=== PATIENT | female | born 1995 | race Caucasian/White ===

== ENCOUNTER 2019-02-06 12:56 | Emergency (ER) | payer BC ==
[2019-02-06 13:47] LABS: #Basophils 0.1 thou/uL (0.0-0.2); #Eosinphils 0.1 thou/uL (0.0-0.7); #Lymphocytes 2.3 thou/uL (1.20-3.40); #Monocytes 0.5 thou/uL (0.11-0.59); #Neutrophils 5.6 thou/uL (1.40-6.50); %Basophils 0.6 % (0.0-1.0); %Eosinophils 1.6 % (0.0-10.0); %Lymphocytes 26.2 % (21.0-51.0); %Monocytes 6.3 % (0.0-10.0); %Neutrophils 65.3 % (42.0-75.0); Hemoglobin 12.9 g/dL (12.0-16.0); Mean Corpuscular HGB CONC 33.5 g/dL (32.0-36.0); Mean Corpuscular Hemoglobin 31.1 pg (27.0-31.0); Mean Corpuscular Volume 92.8 fL (78.0-98.0); Mean Platelet Volume 9.6 fL (7.4-10.4); Platelet Count 199 thou/uL (130-400); RBC Distribution Width 12.6 % (11.5-14.5); Red Blood Cell (RBC) Count 4.16 mill/uL (4.20-5.40); White Blood Cell (WBC) Count 8.6 thou/uL (4.8-10.8)
[2019-02-06 14:44] LABS: BHCG - Serum Negative (NEGATIVE); Pregs Control Background? CLEAR/WHITE (CLR/WHITE); Pregs Control Bar Appear? YES (CONTROL BAR)
[2019-02-06 18:28] LABS: Bilirubin Negative (Negative); Blood, Urine 3+ (Negative); Clarity Clear (Clear); Glucose, Urine (Dipstick) Normal (Negative); Leukocyte Negative Leu/uL (Negative); Nitrite Negative (Negative); Protein, Urine (Dipstick) Negative (Neg-Trace); Squamous Epithelial 0-3 HPF (0-3); Urobilinogen Normal mg/dL (Less than 2); WBC/HPF 0-3 HPF (0-3)
[2019-02-06 18:40] LABS: Bacteria/HPF Rare-Few HPF (None Seen)
--- NOTE | 2019-02-06 18:49 | ULT ---
Exam: Testicular ultrasound Exam: Transabdominal and endovaginal pelvic ultrasound HISTORY:Vaginal bleeding COMPARISON: None TECHNIQUE: Transabdominal and endovaginal imaging of the pelvis is performed. Ovaries are interrogate d with grayscale, color flow, Doppler imaging and spectral wave form analysis FINDINGS: Uterus: No myometrial masses. Uterus measurin.6 x 3.7 x 4.7 cm. Endometrium: Homogeneous echotexture. Endometrium diameter: 0.6 cm. Small nabothian cysts in the cervix measuring 0.6 cm. Free fluid: Small amount of free fluid Right ovary: Normal echotexture Right ovary measurement: 2.8 x 2.1 x 2.5 cm Left ovary: Not appreciated Ovarian Doppler: There is vascular flow to the right ovary. IMPRESSION: Essentially unremarkable pelvic ultrasound
== END 2019-02-06 19:05 | disposition home or self-care (01) ==
LOC: ERS 12:56
DX: N92.0 Excessive and frequent menstruation with regular cycle (principal); J45.909 Unspecified asthma, uncomplicated; F41.9 Anxiety disorder, unspecified; F32.9 Major depressive disorder, single episode, unspecified; Z79.899 Other long term (current) drug therapy
CPT/HCPCS: 36415; 76856; 81003; 81015; 84702; 84703; 85025

== ENCOUNTER 2022-01-05 11:18 | Day surgery (SDC) | payer OTHER ==
[2022-01-03 12:27] VITALS: BMI 50.5
[2022-01-05] MEDS ORDERED: PROPOFOL 200 MG/20 ML VIAL ONE (13:11)
== END 2022-01-05 14:10 | disposition home or self-care (01) ==
LOC: SDC 11:18
PROVIDERS: ATTEND Internal Medicine Gastroenterology
PROC: 0DJD8ZZ Inspection of Lower Intestinal Tract, Via Natural or Artificial Opening Endoscopic (ICD-10-PCS; principal; 2022-01-05)
DX: K92.1 Melena (principal); K64.8 Other hemorrhoids; K21.9 Gastro-esophageal reflux disease without esophagitis; E66.01 Morbid (severe) obesity due to excess calories; Z68.43 Body mass index [BMI] 50.0-59.9, adult; Z87.891 Personal history of nicotine dependence; Z79.899 Other long term (current) drug therapy; Z91.018 Allergy to other foods
CPT/HCPCS: J2704

== ENCOUNTER 2022-08-20 22:04 | Emergency (ER) | payer OTHER ==
[2022-08-20 23:58] LABS: ALT (SGPT) 21 U/L (8-55); AST (SGOT) 20 U/L (5-34); Alkaline Phosphatase 80 U/L (40-110); Anion Gap 13 mmol/L (10-20); BUN (Urea Nitrogen) 9 mg/dL (7.0-18.7); Bilirubin, Total 0.2 mg/dL (0.2-1.2); CK (CPK) 50 U/L (29-168); Calc. Creatinine Clearance 0 mL/min (70-130); Calcium 9.2 mg/dL (7.8-10.44); Carbon Dioxide 23 mmol/L (22-29); Chloride 100 mmol/L (98-107); Estimated GFR 111; Globulin 3.2 g/dL (2.4-3.5); Glucose 102 mg/dL (70-105); Potassium 3.9 mmol/L (3.5-5.1); Protein, Total 7.2 g/dL (6.0-8.3); Sodium 132 mmol/L (136-145)
[2022-08-21 00:20] LABS: #Basophils 0.1 thou/uL (0.0-0.2); #Eosinphils 0.1 thou/uL (0.0-0.7); #Neutrophils 12.2 thou/uL (1.40-6.50); %Basophils 0.4 % (0.0-1.0); %Eosinophils 0.6 % (0.0-10.0); %Lymphocytes 16.6 % (21.0-51.0); %Neutrophils 76.1 % (42.0-75.0); Hemoglobin 12.3 g/dL (12.0-16.0); Mean Corpuscular HGB CONC 32.7 g/dL (32.0-36.0); Mean Corpuscular Hemoglobin 29.2 pg (27.0-31.0); Mean Corpuscular Volume 89.3 fl (78.0-98.0); Mean Platelet Volume 12.1 fL (7.4-10.4); Platelet Count 196 10x3/uL (130-400); RBC Distribution Width 12.8 % (11.5-14.5); Red Blood Cell (RBC) Count 4.21 mill/uL (4.20-5.40)
[2022-08-21] MEDS ORDERED: Promethazine HCl 12.5 MG in Sodium Chloride 0.9% 50 ML IVPB SCH (02:15)
== END 2022-08-21 05:06 | disposition home or self-care (01) ==
LOC: ERS 22:04
DX: T67.5XXA Heat exhaustion, unspecified, initial encounter (principal); E86.0 Dehydration; D72.829 Elevated white blood cell count, unspecified; F17.290 Nicotine dependence, other tobacco product, uncomplicated
CPT/HCPCS: 36415; 71045; 80053; 82550; 84484; 85025; 93005; 96374; J2550

== ENCOUNTER 2024-10-17 23:38 | Emergency (ER) | payer SELFPAY ==
[2024-10-18 00:33] LABS: #Basophils 0.05 10x3/uL (0.0-0.2); #Eosinophils 0.10 10x3/uL (0.0-0.7); #Monocytes 0.68 10x3/uL (0.11-0.59); #Neutrophils 7.51 10x3/uL (1.40-6.50); %Basophils 0.4 % (0.0-1.0); %Eosinophils 0.8 % (0.0-10.0); %Lymphocytes 30.9 % (21.0-51.0); %Monocytes 5.6 % (0.0-10.0); %Neutrophils 62.1 % (42.0-75.0); Hematocrit 39.0 % (36.0-47.0); Hemoglobin 13.0 g/dL (12.0-16.0); Mean Corpuscular Hemoglobin 30.1 pg (27.0-31.0); Mean Corpuscular Volume 90.3 fL (78.0-98.0); Platelet Count 199 10x3/uL (130-400); Red Blood Cell (RBC) Count 4.32 mill/uL (4.20-5.40); White Blood Cell (WBC) Count 12.11 10x3/uL (4.8-10.8)
[2024-10-18] MEDS ORDERED: Ondansetron PF 4 MG/2 ML Vial ONE ×2 (00:41→02:53)
[2024-10-18 00:44] LABS: ALT (SGPT) 28 U/L (Less than 34); AST (SGOT) 61 U/L (11-34); Albumin 4.5 g/dL (3.1-4.5); Alkaline Phosphatase 73 U/L (40-110); Anion Gap 15 mmol/L (10-20); BUN (Urea Nitrogen) 9 mg/dL (7.0-18.7); Bilirubin, Total 0.6 mg/dL (0.3-1.2); Calc. Creatinine Clearance 0 mL/min (70-130); Calcium 8.9 mg/dL (7.8-10.44); Carbon Dioxide 23 mmol/L (22-29); Chloride 102 mmol/L (98-107); Globulin 3.2 g/dL (2.4-3.5); Glucose 102 mg/dL (70-105); Lipase 28 U/L (8-78); Potassium 3.1 mmol/L (3.5-5.1); Sodium 137 mmol/L (136-145)
[2024-10-18 01:28] LABS: CAUTI Indications for Culture Fever or rigors; Glucose, Urine (Dipstick) Normal (Negative); Leukocyte 75 Leu/uL (Negative); Protein, Urine (Dipstick) Negative (Neg-Trace); RBC/HPF 0-3 HPF (0-3); Specific Gravity, Urine 1.003 (1.002-1.036); WBC/HPF 0-3 HPF (0-3)
[2024-10-18 01:29] LABS: Bacteria/HPF 1+ HPF (None Seen); Urine Culture Reflex No No
[2024-10-18 01:52] LABS: BHCG - Serum Negative (NEGATIVE); Pregs Control Background? CLEAR/WHITE (CLR/WHITE); Pregs Control Bar Appear? YES (CONTROL BAR)
[2024-10-18] MEDS ORDERED: Famotidine/PF 20 mg/2ml Vial ONE (03:55)
[2024-10-18] MEDS ORDERED: Ketorolac Tromethamine 30 MG (1 mL) VIAL ONE (05:40)
[2024-10-18] MEDS ORDERED: Iopamidol 370 76% 100 ML VIAL ONE (13:36)
== END 2024-10-18 06:18 | disposition home or self-care (01) ==
LOC: ERS 23:38
DX: R10.84 Generalized abdominal pain (principal); R11.2 Nausea with vomiting, unspecified; E87.6 Hypokalemia; F17.290 Nicotine dependence, other tobacco product, uncomplicated
CPT/HCPCS: 74177; 80053; 81001; 83690; 84703; 85025; 93005; 96361; 96365; 96375; 96376; J1308; J1885; J2405; J3010; Q9967